=== PATIENT | male | born 1975 | race Caucasian/White ===

== ENCOUNTER 2020-01-18 19:53 | Emergency (ER) | payer BC ==
[2020-01-18] MEDS ORDERED: Lidocaine 1% PF 2 ML SDV INJECT ONE (20:06)
[2020-01-18] MEDS ORDERED: Bacitracin Oint 1 GM U/D Packet TOP ONE (20:07)
[2020-01-18] MEDS ORDERED: Diphtheria,Pertussis(Acell),Tetanus Vaccine 0.5 ML Syringe IM ONE (20:07)
--- NOTE | 2020-01-18 20:12 | EDM.PDOC ---
ED HPI GENERAL MEDICAL PROBLEM - General Chief Complaint: Laceration Stated Complaint: CUT ON FINGER Time Seen by Provider: 01/18/20 20:03 Source of Information: Reports: Patient History Limitations: Reports: No Limitations - History of Present Illness INITIAL COMMENTS - FREE TEXT/NARRATIVE: HISTORY AND PHYSICAL: History of present illness: Patient is a 44-year-old male who presents to the emergency room with complaints of a laceration to the left second distal fingertip. He was using a table saw when his hand slipped resulting in the laceration. He does have a partial av ulsion of the nail. He denies any other extremity involvement. He offers no systemic complaints. Unsure of his last tetanus update. Review of systems: As per history of present illness and below otherwise all systems reviewed and negative. Past medical history: As per history of present illness and as reviewed below otherwise noncontributory. Surgical history: As per history of present illness and as reviewed below otherwise noncontributory. Social history: See social history for further information Family history: As per history of present illness and as reviewed below otherwise noncontributory. Physical exam: General: Well developed and well nourished 44 year old male. Alert and orientated x 3. Nontoxic in appearance and in no acute distress. Vital signs are stable and have been reviewed by me. Nursing notes were reviewed. HEENT: Atraumatic, normocephalic, pupils equal and reactive bilaterally, negative for conjunctival pallor or scleral icterus, mucous membranes moist, trachea midline. No drooling or trismus noted. No meningeal signs. No hot potato voice noted. Lungs: Clear to auscultation, breath sounds equal bilaterally. Normal work of breathing, no accessory muscles used. Heart: S1S2, regular rate and rhythm without overt murmur Skin: 2.5 cm "U" laceration to left index finger. Patient has a partial avulsion of the finger involving the nail - soft tissue flap (opening at nail). otherwise skin is intact, warm, dry. No lesions or rashes noted. Hematologic: No petechiae or purpra. Mucosa appropriate color and normal nail bed color and refill. Extremities: Laceration injury to distal tip of left index finger (SEE SKIN), he moves all extremities per self without difficulty or deficits. Neurovascular unremarkable. Neuro: Awake, alert, oriented. Cranial nerves II through XII unremarkable. Cerebellum unremarkable. Motor and sensory unremarkable throughout. Exam nonfocal. Notes: X-ray shows an acute fracture with probable small bony fragments through the distal tuft of the second finger with a soft tissue flap injury to the nailbed. Patient believes he has an allergy to PCN, although he is unsure and does not recall if he has ever had an allergic reaction. Will put on Keflex for the open tuft fracture. 1% lidocaine was used to anesthetize the area. Laceration site was cleansed with wound wash and chlorhexidine. Usual and customary procedures were followed for suture placement. 4-0 nylon, #6 interrupted sutures were placed. Patient tolerated well. Bacitracin nonstick dressing was applied. Patient given a cage splint for home. We discussed the need for follow-up with the hand surgeon for reevaluation. Destiny Sexton information was given. Patient declines wanting any pain medication for home. We discussed signs and symptoms that would prompt them to return to the Emergency Department. Medication, follow up and supportive care measures were reviewed and discussed. Voices understanding and is agreeable to plan of care. Denies any further questions or concerns at this time. Diagnostics: Finger x-ray Therapeutics: Wound care, lidocaine, Tdap, bacitracin, nonstick dressing Prescription: Keflex Impression: Tuft fracture, open Finger laceration Plan: 1. Keep the area clean and dry. Continue to monitor for signs of infection. Sutures to be removed in 7-10 days. 2. Tylenol and/or ibuprofen as needed for pain management. Wear the cage splint to protect the site while you are healing. 3. Please follow-up with the hand surgeon as we discussed. 4. Return to the ED as needed and as discussed. Definitive disposition and diagnosis as appropriate pending reevaluation and review of above. Onset: Today L index Pain Score (Numeric/FACES): 1 - Related Data Allergies Allergy/AdvReac Type Severity Reaction Status Date / Time penicillin V Allergy Other Verified 01/18/20 20:04 Home Meds: Home Meds cephALEXin [Keflex] 500 mg PO BID 7 Days #14 capsule 01/18/20 [Rx] ED ROS GENERAL - Review of Systems Review Of Systems: Comprehensive ROS is negative, except as noted in HPI. ED EXAM, SKIN/RASH Exam: See Below (See dictation) ED SKIN PROCEDURES - Laceration/Wound Repair Left index finger Appearance: Subcutaneous, Irregular Distal NVT: Neuro & Vascular Intact, No Tendon Injury Anesthetic Type: Local Local Anesthesia - Lidocaine (Xylocaine): 1% Plain Local Anesthetic Volume: 2cc Skin Prep: Chlorhexidine (Hibiciens), Saline, Sterile Drape Saline Irrigation (cc's): 500 Exploration/Debridement/Repair: Wound Explored, In a Bloodless Field, Explored to Base, No Foreign Material Found Closed with: Sutures Lac/Wound length In cm: 2.5 Suture Size: 4-0 # of Sutures: 6 Suture Type: Nylon, Interrupted, Simple Drain Placement: No Sterile Dressing Applied: Provider Tetanus Status Addressed: Yes Complications: No Progress/Comments: We discussed the importance of follow up with a Hand Surgeon. Reviewed signs and symptoms that would prompt him to return to the ED immediately. Course - Vital Signs Last Recorded V/S: Last Vital Signs Temp 97.2 F 01/18/20 20:05 Pulse 82 01/18/20 20:05 Resp 20 01/18/20 20:05 BP 140/102 H 01/18/20 20:05 Pulse Ox - Orders/Labs/Meds Orders: Active Orders 24 hr Category Date Time Status Vaccines to be Administered [RC] PER UNIT ROUTINE Care 01/18/20 20:07 Active Fingers Second Digit Lt F1 [CR] Stat Exams 01/18/20 20:06 Taken DME for Discharge [COMM] Stat Oth 01/18/20 21:03 Ordered Meds: Medications Discontinued Medications Generic Name Dose Route Start Last Admin Trade Name Freq PRN Reason Stop Dose Admin Bacitracin 1 dose 01/18/20 20:07 01/18/20 20:32 Bacitracin Oint 1 Gm TOP 01/18/20 20:08 1 dose ONETIME ONE Administration Diphtheria/Tetanus/Acell Pertussis 0.5 ml 01/18/20 20:07 01/18/20 20:32 Adacel IM 01/18/20 20:08 0.5 ml .ONCE ONE Administration Lidocaine HCl 2 ml 01/18/20 20:06 01/18/20 20:32 Xylocaine-Mpf 1% INJECT 01/18/20 20:07 2 ml ONETIME ONE Administration Departure - Departure Time of Disposition: 21:09 Disposition: Home, Self-Care 01 Clinical Impression: Laceration, Open fracture of tuft of distal phalanx of finger - Discharge Information Prescriptions: cephALEXin [Keflex] 500 mg PO BID 7 Days #14 capsule Instructions: Finger Fracture, Adult, [id number], Laceration Care, Adult, [id number] Referrals: [facility] [Primary Care Provider] - Forms: ED Department Discharge Additional Instructions: 1. Keep the area clean and dry. Continue to monitor for signs of infection. Sutures to be removed in 7-10 days. 2. Tylenol and/or ibuprofen as needed for pain management. Wear the cage splint to protect the site while you are healing. 3. Please follow-up with the hand surgeon as we discussed. 4. Return to the ED as needed and as discussed. Sepsis Event Note (ED) - Evaluation Sepsis Screening Result: No Definite Risk - Focused Exam Vital Signs: Vital Signs Temp Pulse Resp BP 01/18/20 20:05 97.2 F 82 20 140/102 H - My Orders Last 24 Hours: My Active Orders 01/18/20 20:06 Fingers Second Digit Lt F1 [CR] Stat 01/18/20 20:07 Vaccines to be Administered [RC] PER UNIT ROUTINE 01/18/20 21:03 DME for Discharge [COMM] Stat - Assessment/Plan Last 24 Hours: My Active Orders 01/18/20 20:06 Fingers Second Digit Lt F1 [CR] Stat 01/18/20 20:07 Vaccines to be Administered [RC] PER UNIT ROUTINE 01/18/20 21:03 DME for Discharge [COMM] Stat
--- NOTE | 2020-01-18 21:14 | CR ---
HISTORY: Table saw injury. COMPARISON: None. FINDINGS: Three views of the left 2nd finger. There is an acute fracture with probable small bony fragments through the distal tuft of the 2nd finger with a soft tissue flap injury to the nailbed. Dictated by Jackie Evans MD @ Jan 18 2020 9:13PM Signed by Dr. Jackie Evans @ Jan 18 2020 9:13PM
== END 2020-01-18 21:20 | disposition home or self-care (01) ==
LOC: MW.ED 19:53
DX: S62.631B Displaced fracture of distal phalanx of left index finger, initial encounter for open fracture (principal); Z88.0 Allergy status to penicillin; Z23 Encounter for immunization; W31.2XXA Contact with powered woodworking and forming machines, initial encounter
CPT/HCPCS: 12001; 73140; 90471; 90715; 99283; J2001; 99282